=== PATIENT | male | born 1950 | race Caucasian/White ===

== ENCOUNTER 2020-10-16 07:42 | Inpatient (IN) | payer OTHER ==
[~2020-10-16] VITALS: Ht 185.4 cm; Wt 109.3 kg
[~2020-10-16 07:42] MED LIST: AMLODIPINE BESY10 MG PO; ASPIR 8181 MG PO; BACLOFEN10 MG PO; CEPHALEXIN500 MG PO; GABAPENTIN300 MG PO; HYDRALAZINE HC100 MG PO; LISINOPRIL10 MG PO; MAG-OX 400 TAB400 MG PO; NITROGLYCE20 MG/1 GM TOP; PANTOPRAZOLE SO40 MG PO; PLAVIX75 MG PO; POTASSIUM CHLO20 MEQ PO; PRILOSEC OTC20 MG PO; SURFAK240 MG PO; ZOCOR20 MG PO
[2020-10-16 08:43] LABS: HEMOGLOBIN 12.9 gm/dl (14.0-17.5); RED BLOOD COUNT 4.68 M/UL (4.20-5.50); WHITE BLOOD COUNT 5.3 K/UL (4.5-11.0)
[2020-10-16 09:01] LABS: BUN/CREATININE RATIO 21 (0-10)
[2020-10-16] MEDS ORDERED: CETIRIZINE HCL10 MG PO (10:41)
[2020-10-16] MEDS ORDERED: GLUCOPHAGE1000 MG PO (10:42)
--- NOTE | 2020-10-17 02:53 | NUR ---
PATIENT CHANGED OVER TO A TOTAL CARE BED FOR SKIN PROTECTION.
[2020-10-17 05:19] LABS: RED BLOOD COUNT 4.19 M/UL (4.20-5.50); WHITE BLOOD COUNT 4.6 K/UL (4.5-11.0)
[2020-10-17 05:56] LABS: BUN/CREATININE RATIO 19 (0-10)
--- NOTE | 2020-10-17 17:01 | NUR ---
PER VERBAL ORDER FROM SHRAVAN NOVA TO START IV IN PATIENTS FOOT. SEVERAL ATTEMPTS MADE PERIPHERALLY WITH N0 SUCCESS. PATIENT SUGGESTION TO ATTEMPT HIS FEET. MD AWARE. IV PLACED TO LEFT FOOT #22 PER ON ATTEMPT. IV IN PLACE, FLUIDS INFUSING WELL.
[2020-10-18 03:08] LABS: HEMOGLOBIN 13.2 gm/dl (14.0-17.5); RED BLOOD COUNT 4.51 M/UL (4.20-5.50); WHITE BLOOD COUNT 5.2 K/UL (4.5-11.0)
[2020-10-18 03:37] LABS: BUN/CREATININE RATIO 20 (0-10)
[2020-10-18] MEDS ORDERED: MEDROL DOSEPAK 24 MG PO (09:45)
[2020-10-18] MEDS ORDERED: VENTOLIN HFA 66.7 GM INH (09:45)
[2020-10-18] MEDS ORDERED: GABAPENTIN300 MG PO ×2 (09:45→09:46)
== END 2020-10-18 12:21 | disposition home or self-care (01) | DRG 917 ==
LOC: ER1 07:42 → PROG CARE 09:51 → CDU 09:51 → PROG CARE 14:14
PROVIDERS: Emergency Medicine; Internal Medicine Pulmonary Disease; ADMIT Internal Medicine
PROC: 5A09457 Assistance with Respiratory Ventilation, 24-96 Consecutive Hours, Continuous Positive Airway Pressure (ICD-10-PCS; principal; 2020-10-16)
DX: T42.8X1A Poisoning by antiparkinsonism drugs and other central muscle-tone depressants, accidental (unintentional), initial encounter (principal); G92 Toxic encephalopathy; J96.21 Acute and chronic respiratory failure with hypoxia; Z20.822 Contact with and (suspected) exposure to COVID-19; E66.2 Morbid (severe) obesity with alveolar hypoventilation; J96.22 Acute and chronic respiratory failure with hypercapnia; G82.50 Quadriplegia, unspecified; J44.0 Chronic obstructive pulmonary disease with (acute) lower respiratory infection; J44.1 Chronic obstructive pulmonary disease with (acute) exacerbation; T42.6X1A Poisoning by other antiepileptic and sedative-hypnotic drugs, accidental (unintentional), initial encounter; F17.210 Nicotine dependence, cigarettes, uncomplicated; I25.10 Atherosclerotic heart disease of native coronary artery without angina pectoris; G89.29 Other chronic pain; E83.39 Other disorders of phosphorus metabolism; I71.4 Abdominal aortic aneurysm, without rupture; K59.00 Constipation, unspecified; I10 Essential (primary) hypertension; T42.8X5A Adverse effect of antiparkinsonism drugs and other central muscle-tone depressants, initial encounter; T42.6X5A Adverse effect of other antiepileptic and sedative-hypnotic drugs, initial encounter; I49.5 Sick sinus syndrome; E78.5 Hyperlipidemia, unspecified; E11.9 Type 2 diabetes mellitus without complications; E86.1 Hypovolemia; Z87.01 Personal history of pneumonia (recurrent); I25.2 Old myocardial infarction; Z95.0 Presence of cardiac pacemaker; Z90.49 Acquired absence of other specified parts of digestive tract; Z87.440 Personal history of urinary (tract) infections; Z82.49 Family history of ischemic heart disease and other diseases of the circulatory system; Z86.14 Personal history of Methicillin resistant Staphylococcus aureus infection; Z68.31 Body mass index [BMI] 31.0-31.9, adult
CPT/HCPCS: 36415; 36600; 70450; 71045; 80053; 81001; 82140; 82550; 82553; 82803; 82962; 83605; 83690; 83735; 83874; 83880; 84100; 84484; 85025; 85610; 85730; 86140; 87040; 87086; 93005; 94640; 94660; 94664; 94760; 99285; J0696; J1335; J1650; J2920; J7030; U0002

== ENCOUNTER 2021-05-26 06:56 | Inpatient (IN) | payer OTHER ==
[~2021-05-26] VITALS: Ht 185.4 cm; Wt 104.3 kg
[~2021-05-26 06:56] MED LIST changes: -BACLOFEN10 MG PO; +CETIRIZINE HCL10 MG PO; +CIPRO250 MG PO; +GABAPENTIN100 MG PO; +GLUCOPHAGE1000 MG PO; +MACROBID 100 M100 MG PO; +MEDROL DOSEPAK 24 MG PO; -NITROGLYCE20 MG/1 GM TOP; +PREDNISONE 5 MG5 MG GT; +VENTOLIN HFA 66.7 GM INH
[2021-05-26 07:55] LABS: HEMOGLOBIN 12.9 gm/dl (14.0-17.5); RED BLOOD COUNT 4.64 M/UL (4.20-5.50); WHITE BLOOD COUNT 8.3 K/UL (4.5-11.0)
[2021-05-26 08:05] LABS: BUN/CREATININE RATIO 15 (0-10)
[2021-05-26] MEDS ORDERED: NITROGLYCE20 MG/1 GM TOP (14:34)
[2021-05-26] MEDS ORDERED: GABAPENTIN300 MG PO (19:02)
[2021-05-26] MEDS ORDERED: DULOXETINE HCL60 MG PO (19:03)
[2021-05-26] MEDS ORDERED: CLARITIN10 M2 PO (19:03)
[2021-05-26] MEDS ORDERED: ZOCOR40 MG PO (19:04)
[2021-05-26] MEDS ORDERED: DOCUSATE SODIU250 MG PO (19:05)
[2021-05-26] MEDS ORDERED: ASPIRIN EC81 MG PO (19:06)
[2021-05-26] MEDS ORDERED: MAGNESIUM OXID420 MG PO (19:25)
[2021-05-26] MEDS ORDERED: TRAMADOL HCL50 MG PO (19:29)
[2021-05-26] MEDS ORDERED: PROVENTIL HFA6.7 GM INH (19:33)
[2021-05-26] MEDS ORDERED: SPIRIVA RESPIMAT4 GM INH (19:40)
[2021-05-26] MEDS ORDERED: PAIN RELIEF1 EACH TOP (19:44)
[2021-05-27 03:31] LABS: HEMOGLOBIN 12.6 gm/dl (14.0-17.5); RED BLOOD COUNT 4.49 M/UL (4.20-5.50)
[2021-05-27 03:33] LABS: WHITE BLOOD COUNT 6.2 K/UL (4.5-11.0)
[2021-05-27 03:54] LABS: BUN/CREATININE RATIO 19 (0-10)
[2021-05-27] MEDS ORDERED: BACLOFEN10 MG PO (14:37)
[2021-05-27 20:04] LABS: ACINETOBACTER BAUMANNII Not Detected (Negative); CANDIDA ALBICANS Not Detected (Negative); CANDIDA KRUSEI Not Detected (Negative); CANDIDA TROPICALIS Not Detected (Negative); ENTEROCOCCUS Not Detected (Negative); ESCHERICHIA COLI Not Detected (Negative); HAEMOPHILUS INFLUENZAE Not Detected (Negative); KLEBSIELLA OXYTOCA Not Detected (Negative); KLEBSIELLA PNEUMONIAE Not Detected (Negative); KPC-CARBAPENEM-RESISTANCE GENE Not Detected (Negative); PROTEUS Not Detected (Negative); PSEUDOMONAS AERUGINOSA Not Detected (Negative); SERRATIA MARCESANS Not Detected (Negative); STAPHYLOCOCCUS Not Detected (Negative); STAPHYLOCOCCUS AUREUS Not Detected (Negative); STREP AGALACTIAE (GROUP B) Not Detected (Negative); STREP PYOGENES (GROUP A) Not Detected (Negative); STREPTOCOCCUS Not Detected (Negative); mecA (METHICILLIN RESIST GENE Not Detected (Negative); vanA/B (VANCOMYCIN RESIST GENE Not Detected (Negative)
[2021-05-28 05:08] LABS: HEMOGLOBIN 12.2 gm/dl (14.0-17.5); RED BLOOD COUNT 4.24 M/UL (4.20-5.50); WHITE BLOOD COUNT 6.3 K/UL (4.5-11.0)
[2021-05-28 05:56] LABS: BUN/CREATININE RATIO 22 (0-10)
[2021-05-29 02:42] LABS: HEMOGLOBIN 11.8 gm/dl (14.0-17.5); RED BLOOD COUNT 4.2 M/UL (4.20-5.50)
[2021-05-29 03:02] LABS: BUN/CREATININE RATIO 21 (0-10)
[2021-05-30 03:46] LABS: HEMOGLOBIN 11.8 gm/dl (14.0-17.5); RED BLOOD COUNT 4.19 M/UL (4.20-5.50); WHITE BLOOD COUNT 5.9 K/UL (4.5-11.0)
[2021-05-30 04:05] LABS: BUN/CREATININE RATIO 23 (0-10)
[2021-05-31] MEDS ORDERED: LOPRESSOR 25 MG25 MG PO (12:58)
[2021-05-31] MEDS ORDERED: ASPIRIN EC81 MG PO (13:08)
[2021-05-31] MEDS ORDERED: OMNICEF 300 MG300 MG PO (13:08)
[2021-05-31] MEDS ORDERED: ELIQUIS2.5 MG PO (13:08)
[2021-05-31] MEDS ORDERED: DOXYCYCLINE HY100 M2 PO (13:10)
[2021-05-31] MEDS ORDERED: AMOX TR-K CLV1 EAC4 PO (13:16)
[2021-05-31] MEDS ORDERED: DECADRON6 MG PO (13:18)
== END 2021-05-31 14:33 | disposition home or self-care (01) | DRG 177 ==
LOC: ER1 06:56 → CDU 09:35 → PROG CARE 17:23
PROVIDERS: Emergency Medicine; Physician Assistant; ADMIT Internal Medicine
PROC: 8E0ZXY6 Isolation (ICD-10-PCS; principal; 2021-05-26)
PROC: XW033E5 Introduction of Remdesivir Anti-infective into Peripheral Vein, Percutaneous Approach, New Technology Group 5 (ICD-10-PCS; 2021-05-26)
PROC: 3E0333Z Introduction of Anti-inflammatory into Peripheral Vein, Percutaneous Approach (ICD-10-PCS; 2021-05-26)
PROC: 5A09457 Assistance with Respiratory Ventilation, 24-96 Consecutive Hours, Continuous Positive Airway Pressure (ICD-10-PCS; 2021-05-29)
DX: U07.1 COVID-19 (principal); J12.82 Pneumonia due to coronavirus disease 2019; J96.22 Acute and chronic respiratory failure with hypercapnia; J96.21 Acute and chronic respiratory failure with hypoxia; J69.0 Pneumonitis due to inhalation of food and vomit; J15.9 Unspecified bacterial pneumonia; G82.50 Quadriplegia, unspecified; J44.0 Chronic obstructive pulmonary disease with (acute) lower respiratory infection; E66.2 Morbid (severe) obesity with alveolar hypoventilation; I10 Essential (primary) hypertension; I25.10 Atherosclerotic heart disease of native coronary artery without angina pectoris; I49.5 Sick sinus syndrome; E11.9 Type 2 diabetes mellitus without complications; E78.5 Hyperlipidemia, unspecified; G47.33 Obstructive sleep apnea (adult) (pediatric); Z99.81 Dependence on supplemental oxygen; Z95.1 Presence of aortocoronary bypass graft; Z95.0 Presence of cardiac pacemaker; Z90.49 Acquired absence of other specified parts of digestive tract; Z82.49 Family history of ischemic heart disease and other diseases of the circulatory system; Z79.899 Other long term (current) drug therapy; Z79.82 Long term (current) use of aspirin; Z79.4 Long term (current) use of insulin; Z68.28 Body mass index [BMI] 28.0-28.9, adult
CPT/HCPCS: 36415; 36600; 71045; 80053; 80202; 81001; 82550; 82553; 82803; 82962; 83605; 84484; 85025; 85027; 86140; 87040; 87077; 87086; 87150; 93005; 94640; 94660; 94664; 94760; 96374; 96375; 99285; J0248; J0360; J0692; J1100; J1650; J2185; J2405; J3370; J7030; J7070; U0002

== ENCOUNTER 2021-07-13 01:21 | Emergency (ER) | payer OTHER ==
[~2021-07-13 01:21] MED LIST changes: +AMOX TR-K CLV1 EAC4 PO; +ASPIRIN EC81 MG PO; +BACLOFEN10 MG PO; +CLARITIN10 M2 PO; +DECADRON6 MG PO; +DOCUSATE SODIU250 MG PO; +DOXYCYCLINE HY100 M2 PO; +DULOXETINE HCL60 MG PO; +ELIQUIS2.5 MG PO; +LOPRESSOR 25 MG25 MG PO; +MAGNESIUM OXID420 MG PO; +NITROGLYCE20 MG/1 GM TOP; +OMNICEF 300 MG300 MG PO; +PAIN RELIEF1 EACH TOP; +PROVENTIL HFA6.7 GM INH; +SPIRIVA RESPIMAT4 GM INH; +TRAMADOL HCL50 MG PO; +ZOCOR40 MG PO
[2021-07-13 01:59] LABS: HEMOGLOBIN 14.2 gm/dl (14.0-17.5); RED BLOOD COUNT 4.88 M/UL (4.20-5.50); WHITE BLOOD COUNT 8.1 K/UL (4.5-11.0)
[2021-07-13 02:34] LABS: BUN/CREATININE RATIO 29 (0-10)
[2021-07-13] MEDS ORDERED: PROBIOTIC & AC1 EACH PO (06:48)
[2021-07-13] MEDS ORDERED: ZOFRAN 4 MG TAB4 MG PO (06:48)
[2021-07-13] MEDS ORDERED: K-TAB ER20 MEQ PO (06:48)
[2021-07-13] MEDS ORDERED: OMNICEF 300 MG300 MG PO (06:48)
== END 2021-07-13 08:40 | disposition home or self-care (01) ==
LOC: ER1 01:21
DX: I74.09 Other arterial embolism and thrombosis of abdominal aorta (principal); N39.0 Urinary tract infection, site not specified; E87.6 Hypokalemia; I11.9 Hypertensive heart disease without heart failure; I25.2 Old myocardial infarction; J44.9 Chronic obstructive pulmonary disease, unspecified; E11.9 Type 2 diabetes mellitus without complications; E66.01 Morbid (severe) obesity due to excess calories; E78.5 Hyperlipidemia, unspecified; Z20.822 Contact with and (suspected) exposure to COVID-19
CPT/HCPCS: 0240U; 51702; 71045; 80053; 81001; 83605; 83690; 85025; 87077; 87086; 87186; 87449; 96374; 96375; 99284; J0696; J2405; Q9967

== ENCOUNTER 2021-09-04 13:40 | Emergency (ER) | payer OTHER ==
[~2021-09-04 13:40] MED LIST changes: +K-TAB ER20 MEQ PO; +PROBIOTIC & AC1 EACH PO; +ZOFRAN 4 MG TAB4 MG PO
[2021-09-04 16:34] LABS: HEMOGLOBIN 11.5 gm/dl (14.0-17.5); RED BLOOD COUNT 3.95 M/UL (4.20-5.50); WHITE BLOOD COUNT 8.2 K/UL (4.5-11.0)
[2021-09-04 16:59] LABS: BUN/CREATININE RATIO 15 (0-10)
[2021-09-04] MEDS ORDERED: CIPRO500 MG PO (20:05)
[2021-09-04] MEDS ORDERED: CONSTULOSE10 GM/15 M PO (20:05)
== END 2021-09-04 20:37 | disposition home or self-care (01) ==
LOC: ER1 13:40
PROVIDERS: Physician Assistant
DX: S72.052A Unspecified fracture of head of left femur, initial encounter for closed fracture (principal); S82.142A Displaced bicondylar fracture of left tibia, initial encounter for closed fracture; S80.812A Abrasion, left lower leg, initial encounter; N39.0 Urinary tract infection, site not specified; I11.9 Hypertensive heart disease without heart failure; E11.9 Type 2 diabetes mellitus without complications; K59.00 Constipation, unspecified; L89.90 Pressure ulcer of unspecified site, unspecified stage; Z87.891 Personal history of nicotine dependence; X58.XXXA Exposure to other specified factors, initial encounter
CPT/HCPCS: 71250; 73552; 73560; 73590; 80053; 81001; 85025; 99284